=== PATIENT | female | born 1965 | race Caucasian/White ===

== ENCOUNTER 2019-10-11 06:15 | Outpatient (REF) | payer SELFPAY ==
[2019-10-11 08:28] LABS: Estmated Average Glucose 131; Hemoglobin A1C 6.2 % (4.0-6.0)
[2019-10-11 11:09] LABS: Chol HDL Ratio 3.57 mg/dL (0.0-4.40); Cholesterol 164 mg/dL (0-200); Glucose 113 mg/dL (65-115); HDL Cholesterol 46 mg/dL (60-100); LDL Cholesterol Calculated 88 mg/dL (50-129); LDL HDL Ratio 1.91 RATIO (0.00-3.22); Triglycerides 148 mg/dL (0-150)
== END 2019-10-11 06:16 | disposition home or self-care (01) ==
LOC: LAB 06:15
PROVIDERS: Visit Provider Dermatology
DX: Z01.89 Encounter for other specified special examinations (principal)
CPT/HCPCS: 80061; 82947; 83036

== ENCOUNTER → 2019-10-21 11:08 | Outpatient (BNVA) | payer OTHER, SELFPAY | PROVIDERS: Visit Provider Nurse Practitioner Family | DX: Z12.31 Encounter for screening mammogram for malignant neoplasm of breast (principal); E55.9 Vitamin D deficiency, unspecified; R73.03 Prediabetes | CPT/HCPCS: 80053; 82306; 84443; 85025 ==

== ENCOUNTER → 2020-01-20 16:30 | Outpatient (BNVA) | payer OTHER, SELFPAY | PROVIDERS: Visit Provider Nurse Practitioner Family | DX: R73.03 Prediabetes (principal); R63.5 Abnormal weight gain; E55.9 Vitamin D deficiency, unspecified; R60.9 Edema, unspecified | CPT/HCPCS: 80053; 80061; 82306; 83036; 83735; 84439; 84443; 84481; 85025 ==

== ENCOUNTER → 2021-07-26 11:38 | Outpatient (BNVA) | payer BC, SELFPAY | PROVIDERS: Visit Provider Nurse Practitioner Family | DX: R73.03 Prediabetes (principal); Z20.822 Contact with and (suspected) exposure to COVID-19; E55.9 Vitamin D deficiency, unspecified | CPT/HCPCS: 80053; 80061; 82306; 83036; 84443; 85025; 86769 ==